=== PATIENT | female | born 1945 | race Caucasian/White ===

== ENCOUNTER 2019-01-30 21:20 | Emergency (ER) | payer MEDICARE ==
[~2019-01-30] VITALS: Ht 162.6 cm; Wt 65.8 kg
[2019-01-30] MEDS ORDERED: ELIQUIS5 MG PO (21:34)
[2019-01-30] MEDS ORDERED: OMEPRAZOLE20 MG PO (21:34)
[2019-01-30] MEDS ORDERED: COLCHICINE0.6 M1 PO (21:35)
[2019-01-30] MEDS ORDERED: FLECAINIDE ACE100 MG PO (21:36)
[2019-01-30] MEDS ORDERED: METOPROLOL SUCC50 MG PO (21:36)
--- NOTE | 2019-01-30 23:58 | EKG ---
[facility] [address] [facility] [place] [address] Signed Normal sinus rhythm Normal ECG No previous ECGs available Confirmed by JAKE AUGUST MD ([id number] on 01/30/2019 11:58:32 PM Electronically Signed By: JAKE AUGUST MD 01/30/19 2358 PATIENT NAME: KIKE FUNK Electrocardiogram DATE OF : 45 PHYSICIAN: JAKE AUGUST MD REPORT #: [id number] REPORT IS CONFIDENTIAL AND NOT TO BE RELEASED WITHOUT AUTHORIZATION
== END 2019-01-31 03:02 | disposition home or self-care (01) ==
LOC: ED 21:20
DX: R55 Syncope and collapse (principal); E83.42 Hypomagnesemia; M79.622 Pain in left upper arm; Z88.6 Allergy status to analgesic agent; Z88.5 Allergy status to narcotic agent; Z79.899 Other long term (current) drug therapy
CPT/HCPCS: 71045; 80053; 83735; 84484; 85025; 85610; 85730; 93005; 93010; 96361; 96374; 99284-25; J3475; J7030